=== PATIENT | female | born 1995 | race American Indian/Alaskan Native ===

== ENCOUNTER 2016-07-27 19:17 | Emergency (ER) | payer SELFPAY ==
[2016-07-27 20:02] VITALS: BP 121/66
== END 2016-07-27 19:50 | disposition left against medical advice (07) ==
LOC: DL.ED 19:17
DX: Z53.21 Procedure and treatment not carried out due to patient leaving prior to being seen by health care provider (principal)

== ENCOUNTER 2017-06-22 18:03 | Emergency (ER) | payer SELFPAY | END 2017-06-22 19:33 | disposition home or self-care (01) | LOC: DL.ED 18:03 | DX: J06.9 Acute upper respiratory infection, unspecified (principal) | CPT/HCPCS: 87081; 87430; 99283 ==

== ENCOUNTER 2017-10-09 17:57 | Emergency (ER) | payer SELFPAY ==
[2017-10-09 18:17] VITALS: BP 126/55
[2017-10-09] MEDS ORDERED: Penicillin G Benzathine/Procaine 600-600 1.2 Millunits/2 ML Syringe IM ONE (19:02)
[2017-10-09] MEDS ORDERED: Ketorolac 30 MG/ML SDV IM ONE (19:02)
--- NOTE | 2017-10-09 19:05 | EDM.PDOC ---
ED HPI GENERAL MEDICAL PROBLEM - General Chief Complaint: ENT Problem Stated Complaint: cold [id number] Time Seen by Provider: 10/09/17 19:03 Source of Information: Reports: Patient History Limitations: Reports: No Limitations - History of Present Illness INITIAL COMMENTS - FREE TEXT/NARRATIVE: c/o sore throat hard to swallow. Throat Pain Score (Numeric/FACES): 6 - Related Data Allergies Allergy/AdvReac Type Severity Reaction Status Date / Time No Known Allergies Allergy Verified 07/27/16 20:02 Home Meds: Home Meds . [No Known Home Meds] 10/27/14 [History] Past Medical History - Past Health History Medical/Surgical History: Denies Medical/Surgical History HEENT History: Reports: None Cardiovascular History: Reports: None Respiratory History: Reports: None Gastrointestinal History: Reports: None Genitourinary History: Reports: None MACHINE TESTER History: Reports: None Musculoskeletal History: Reports: None Neurological History: Reports: None Psychiatric History: Reports: None Endocrine/Metabolic History: Reports: None Hematologic History: Reports: None Immunologic History: Reports: None Oncologic (Cancer) History: Reports: None Dermatologic History: Reports: None Social & Family History - Family History Family Medical History: Noncontributory - Tobacco Use Smoking Status *Q: Current Every Day Smoker Years of Tobacco use: 3 Packs/Tins Daily: 0.1 - Caffeine Use Caffeine Use: Reports: Soda, Tea Caffeine Use Comment: patient denies - Recreational Drug Use Recreational Drug Use: No ED ROS ENT - Review of Systems Review Of Systems: ROS reveals no pertinent complaints other than HPI. ED EXAM, ENT - Physical Exam Exam: See Below Exam Limited By: No Limitations General Appearance: Alert, WD/WN, Mild Distress, Other (discomfort) Ears: Hearing Grossly Normal Mouth/Throat: Pharyngeal Erythema, Tonsillar Erythema, Tonsillar Exudates, Tonsillar Swelling Head: Atraumatic Neck: Non-Tender, Full Range of Motion Respiratory/Chest: No Respiratory Distress Cardiovascular: Regular Rate, Rhythm GI/Abdominal: Soft, Non-Tender Neurological: Alert, Oriented, Normal Cognition, Normal Gait, No Motor/Sensory Deficits Psychiatric: Flat Affect Skin: Warm, Dry, Normal Color Lymphatic: No Adenopathy Course - Vital Signs Last Recorded V/S: Last Vital Signs Temp 37.1 C 10/09/17 18:16 Pulse 100 10/09/17 18:16 Resp 16 10/09/17 18:16 BP 126/55 L 10/09/17 18:16 Pulse Ox 100 10/09/17 18:16 - Orders/Labs/Meds Orders: Active Orders 24 hr Category Date Time Status DRUG SCREEN URINE BIORAD [URCHEM] Stat Lab 10/09/17 18:28 Ordered HCG QUALITATIVE,URINE [URCHEM] Stat Lab 10/09/17 18:27 Ordered STREP SCRN A RAPID W CULT CONF [RM] Stat Lab 10/09/17 18:15 Ordered UA W/MICROSCOPIC [URIN] Stat Lab 10/09/17 18:27 Ordered Ketorolac [Toradol] Med 10/09/17 19:02 Once 30 mg IM ONETIME ONE Pen G Toon/Pen G Procaine [Bicillin C-R 600/600] Med 10/09/17 19:02 Once 1.2 millunits IM ONETIME ONE Labs: Laboratory Tests 10/09/17 10/09/17 10/09/17 Range/Units 18:27 18:27 18:28 Urine Color Yellow (YELLOW) Urine Appearance Cloudy (CLEAR) Urine pH 6.5 (5.0-9.0) Ur Specific [place] 1.010 (1.005-1.030) Urine Protein Trace H (NEGATIVE) Urine Glucose (UA) Negative (NEGATIVE) Urine Ketones Negative (NEGATIVE) Urine Occult Blood Negative (NEGATIVE) Urine Nitrite Negative (NEGATIVE) Urine Bilirubin Negative (NEGATIVE) Urine Urobilinogen 2.0 H (0.2-1.0) mg/dL Ur Leukocyte Esterase Negative (NEGATIVE) Urine HCG, Qual Negative Urine Opiates Screen Negative (NEGATIVE) Ur Oxycodone Screen Negative (NEGATIVE) Urine Methadone Screen Negative (NEGATIVE) Ur Barbiturates Screen Negative (NEGATIVE) U Tricyclic Antidepress Negative (NEGATIVE) Ur Phencyclidine Scrn Negative (NEGATIVE) Ur Amphetamine Screen Positive H (NEGATIVE) U Methamphetamines Scrn Positive H (NEGATIVE) Urine MDMA Screen Negative (NEGATIVE) U Benzodiazepines Scrn Negative (NEGATIVE) Urine Cocaine Screen Negative (NEGATIVE) U Marijuana (THC) Screen Positive H (NEGATIVE) Departure - Departure Time of Disposition: 19:04 Disposition: Home, Self-Care 01 Condition: Good Clinical Impression: Strep tonsillitis - Discharge Information Instructions: Strep Throat, [id number] Additional Instructions: 1) avoid solid foods scratchy foods 2) have popsicle, jello, juice, smoothies 3) take tylenol or motrin as needed for fever 4) follow up at clinic rx given; lexa - My Orders Last 24 Hours: My Active Orders 10/09/17 19:02 Ketorolac [Toradol] 30 mg IM ONETIME ONE Pen G Tono/Pen G Procaine [Bicillin C-R 600/600] 1.2 millunits IM ONETIME ONE - Assessment/Plan Last 24 Hours: My Active Orders 10/09/17 19:02 Ketorolac [Toradol] 30 mg IM ONETIME ONE Pen G Tono/Pen G Procaine [Bicillin C-R 600/600] 1.2 millunits IM ONETIME ONE
== END 2017-10-09 19:38 | disposition home or self-care (01) ==
LOC: DL.ED 17:57
DX: J03.00 Acute streptococcal tonsillitis, unspecified (principal); F17.210 Nicotine dependence, cigarettes, uncomplicated
CPT/HCPCS: 80305; 81001; 81025; 87430; 96372; 99283; J0558; J1885

== ENCOUNTER 2018-07-06 19:21 | Emergency (ER) | payer MEDICAID ==
[2018-07-06 22:32] LABS: ANION GAP 13.1; CHLORIDE,CL 106 mmol/L (101-111); SODIUM,NA 135 mmol/L (135-145)
[2018-07-06 23:12] VITALS: BP 145/95
--- NOTE | 2018-07-06 23:16 | EDM.PDOC ---
"ED HPI GENERAL MEDICAL PROBLEM - General Chief Complaint: DE ICER Problem Stated Complaint: MIGHT BE HAVING A MISCARRIAGE? Time Seen by Provider: 07/06/18 21:30 Source of Information: Reports: Patient History Limitations: Reports: No Limitations - History of Present Illness INITIAL COMMENTS - FREE TEXT/NARRATIVE: ED with c/o onset low back pain and abdominal cramping greater LLQ, concern if having miscarriage. LMP end of april. SAB2 Denies any vaginal bleeding or spotting. no urinary complaints. No nausea or vomiting. Lower Back Pain Score (Numeric/FACES): 6 - Related Data Allergies Allergy/AdvReac Type Severity Reaction Status Date / Time No Known Allergies Allergy Verified 07/06/18 21:44 Home Meds: Home Meds . [No Known Home Meds] 10/27/14 [History] Past Medical History - Past Health History Medical/Surgical History: Denies Medical/Surgical History HEENT History: Reports: None Cardiovascular History: Reports: None Respiratory History: Reports: None Gastrointestinal History: Reports: None Genitourinary History: Reports: None DE ICER History: Reports: Spontaneous Musculoskeletal History: Reports: None Neurological History: Reports: None Psychiatric History: Reports: None Endocrine/Metabolic History: Reports: None Hematologic History: Reports: None Immunologic History: Reports: None Oncologic (Cancer) History: Reports: None Dermatologic History: Reports: None Social & Family History - Family History Family Medical History: Noncontributory - Tobacco Use Smoking Status *Q: Current Every Day Smoker Years of Tobacco use: 6 Packs/Tins Daily: 0.5 - Caffeine Use Caffeine Use: Reports: Coffee, Energy Drinks, Soda Caffeine Use Comment: patient denies - Recreational Drug Use Recreational Drug Use: No ED ROS GENERAL - Review of Systems Review Of Systems: ROS reveals no pertinent complaints other than HPI. ED EXAM - Physical Exam Exam: See Below Exam Limited By: No Limitations General Appearance: Alert, No Apparent Distress Eye Exam: Bilateral Eye: EOMI Ears: Normal External Exam Nose: Normal Inspection Throat/Mouth: Normal Inspection Head: Atraumatic, Normocephalic Neck: Normal Inspection, Full Range of Motion Respiratory/Chest: No Respiratory Distress, Lungs Clear, Normal Breath Sounds Cardiovascular: Normal Peripheral Pulses, Regular Rate, Rhythm GI/Abdominal Exam: Normal Bowel Sounds, Soft, Tender (LLQ). No: Distended, Guarding Back Exam: Normal Inspection Extremities: Normal Inspection Neurological: Alert, Oriented, Normal Cognition Skin Exam: Warm, Dry, Intact, Normal Color Course - Vital Signs Last Recorded V/S: Last Vital Signs Temp 100.3 F 07/06/18 23:11 Pulse 129 H 07/06/18 23:11 Resp 18 07/06/18 23:11 BP 145/95 H 07/06/18 23:11 Pulse Ox 100 07/06/18 23:11 - Orders/Labs/Meds Labs: Laboratory Tests 07/06/18 07/06/18 07/06/18 Range/Units 22:01 22:01 22:01 WBC (5.0-10.0) 10^3/uL RBC (4.2-5.4) 10^6/uL Hgb (12.0-16.0) g/dL Hct (37.0-47.0) % MCV (80-100) fL MCH (27.0-34.0) pg MCHC (33.0-35.0) g/dL Plt Count (150-450) 10^3/uL Neut % (Auto) (42.2-75.2) % Lymph % (Auto) (20.5-50.1) % [place] % (Auto) (2-8) % Eos % (Auto) (1.0-3.0) % Baso % (Auto) (0.0-1.0) % Sodium (135-145) mmol/L Potassium (3.6-5.0) mmol/L Chloride (101-111) mmol/L Carbon Dioxide (21.0-31.0) mmol/L Anion Gap BUN (7-18) mg/dL Creatinine (0.6-1.3) mg/dL Est Cr Clr Drug Dosing mL/min Estimated GFR (MDRD) BUN/Creatinine Ratio Glucose (74-105) mg/dL Calcium (8.4-10.2) mg/dl Total Bilirubin (0.2-1.0) mg/dL AST (10-42) IU/L ALT (10-60) IU/L Alkaline Phosphatase (42-121) IU/L Total Protein (6.7-8.2) g/dl Albumin (3.2-5.5) g/dl Globulin Albumin/Globulin Ratio HCG, Quant (0-25) mIU/ml Beta HCG, Quant mIU/ml Urine Color Yellow (YELLOW) Urine Appearance Slightly cloudy (CLEAR) Urine pH 6.0 (5.0-9.0) Ur Specific [place] 1.020 (1.005-1.030) Urine Protein Negative (NEGATIVE) Urine Glucose (UA) Negative (NEGATIVE) Urine Ketones Negative (NEGATIVE) Urine Occult Blood Trace-intact H (NEGATIVE) Urine Nitrite Negative (NEGATIVE) Urine Bilirubin Negative (NEGATIVE) Urine Urobilinogen 0.2 (0.2-1.0) mg/dL Ur Leukocyte Esterase Negative (NEGATIVE) Urine RBC 0-5 /HPF Urine WBC 0-5 (0-5/HPF) /HPF Ur Epithelial Cells Many H (NOT SEEN) /HPF Amorphous Sediment Rare (NOT SEEN) /HPF Urine Bacteria Moderate H (0-FEW/HPF) /HPF Urine Mucus Rare (NOT SEEN) /LPF Urine HCG, Qual Positive Urine Opiates Screen Negative (NEGATIVE) Ur Oxycodone Screen Negative (NEGATIVE) Urine Methadone Screen Negative (NEGATIVE) Ur Barbiturates Screen Negative (NEGATIVE) U Tricyclic Antidepress Negative (NEGATIVE) Ur Phencyclidine Scrn Negative (NEGATIVE) Ur Amphetamine Screen Positive H (NEGATIVE) U Methamphetamines Scrn Positive H (NEGATIVE) Urine MDMA Screen Negative (NEGATIVE) U Benzodiazepines Scrn Negative (NEGATIVE) Urine Cocaine Screen Negative (NEGATIVE) U Marijuana (THC) Screen Negative (NEGATIVE) 07/06/18 07/06/18 07/06/18 Range/Units 22:04 22:04 22:04 WBC 11.9 H (5.0-10.0) 10^3/uL RBC 4.92 (4.2-5.4) 10^6/uL Hgb 14.3 (12.0-16.0) g/dL Hct 42.5 (37.0-47.0) % MCV 86.4 (80-100) fL MCH 29.1 (27.0-34.0) pg MCHC 33.6 (33.0-35.0) g/dL Plt Count 355 (150-450) 10^3/uL Neut % (Auto) 74.6 (42.2-75.2) % Lymph % (Auto) 19.9 L (20.5-50.1) % [place] % (Auto) 4.4 (2-8) % Eos % (Auto) 0.8 L (1.0-3.0) % Baso % (Auto) 0.3 (0.0-1.0) % Sodium 135 (135-145) mmol/L Potassium 4.1 (3.6-5.0) mmol/L Chloride 106 (101-111) mmol/L Carbon Dioxide 20.0 L (21.0-31.0) mmol/L Anion Gap 13.1 BUN 20 H (7-18) mg/dL Creatinine 0.7 (0.6-1.3) mg/dL Est Cr Clr Drug Dosing 99.70 mL/min Estimated GFR (MDRD) > 60 BUN/Creatinine Ratio 28.57 Glucose 111 H (74-105) mg/dL Calcium 9.3 (8.4-10.2) mg/dl Total Bilirubin 0.6 (0.2-1.0) mg/dL AST 17 (10-42) IU/L ALT 16 (10-60) IU/L Alkaline Phosphatase 73 (42-121) IU/L Total Protein 7.8 (6.7-8.2) g/dl Albumin 4.4 (3.2-5.5) g/dl Globulin 3.4 Albumin/Globulin Ratio 1.29 HCG, Quant 198 H (0-25) mIU/ml Beta HCG, Quant < 1050 mIU/ml Urine Color (YELLOW) Urine Appearance (CLEAR) Urine pH (5.0-9.0) Ur Specific [place] (1.005-1.030) Urine Protein (NEGATIVE) Urine Glucose (UA) (NEGATIVE) Urine Ketones (NEGATIVE) Urine Occult Blood (NEGATIVE) Urine Nitrite (NEGATIVE) Urine Bilirubin (NEGATIVE) Urine Urobilinogen (0.2-1.0) mg/dL Ur Leukocyte Esterase (NEGATIVE) Urine RBC /HPF Urine WBC (0-5/HPF) /HPF Ur Epithelial Cells (NOT SEEN) /HPF Amorphous Sediment (NOT SEEN) /HPF Urine Bacteria (0-FEW/HPF) /HPF Urine Mucus (NOT SEEN) /LPF Urine HCG, Qual Urine Opiates Screen (NEGATIVE) Ur Oxycodone Screen (NEGATIVE) Urine Methadone Screen (NEGATIVE) Ur Barbiturates Screen (NEGATIVE) U Tricyclic Antidepress (NEGATIVE) Ur Phencyclidine Scrn (NEGATIVE) Ur Amphetamine Screen (NEGATIVE) U Methamphetamines Scrn (NEGATIVE) Urine MDMA Screen (NEGATIVE) U Benzodiazepines Scrn (NEGATIVE) Urine Cocaine Screen (NEGATIVE) U Marijuana (THC) Screen (NEGATIVE) - Radiology Interpretation Free Text/Narrative:: [facility] [place] [facility] Final Radiology Report Call: [phone] assistance Online chat: [email or web address] Name: PEYTON CAPUTO Age: 22Years F Date: 07/06/2018 SSN: -- : [id number] Study: US LTD ONE OR MORE FETUSES Requesting Physician: EMILEE TRACEY Images: 37 Addl Studies: Provided Clinical History: Contrast: Without Contrast Medium: Contrast Amount: Contrast Method: Page 1 of 2 EXAM: US First Trimester, Transabdominal EXAM DATE/TIME: 07/06/2018 10:55 PM CLINICAL HISTORY: 22 years old, female; Signs and symptoms; LMP: 05/13/2018, corresponding to gestational age of 7 weeks 5 days. Left-sided pelvic pain. . Serum beta hC TECHNIQUE: Imaging protocol: Real-time transabdominal obstetrical ultrasound of the maternal pelvis and a first trimester , less than 14 weeks 0 days, with image documentation. COMPARISON: No relevant prior studies available. FINDINGS: GESTATION: Gestation: No intrauterine gestation appreciated. MATERNAL: Uterus: Endometrium is homogeneous in appearance and measures 11 mm. Unremarkable size and appearance of the uterus. Cervix: Unremarkable. Right adnexa: Unremarkable size and appearance of the right ovary. Left adnexa: Unremarkable size and appearance of the left ovary. Intraperitoneal: No intraperitoneal free fluid. IMPRESSION: PEYTON CAPUTO | Final Radiology Report CONFIDENTIALITY STATEMENT This report is intended only for use by the referring physician, and only in accordance with law. If you received this in error, call [phone]. Page 2 of 2 Endometrium is homogeneous in appearance and measures 11 mm. No intrauterine gestation appreciated. Although no evidence of ectopic is seen on the provided images, this cannot be totally excluded. Recommend follow-up serial beta hCGs and a repeat ultrasound in 7-10 days. Thank yo - Re-Assessments/Exams Free Text/Narrative Re-Assessment/Exam: 05/22/19 04:26 Discussed ultra sound finding. Instructed to return if heavy bleeding, or sever Lower abdominal pain. Patient was instructed to follow up with PCP at least in 7 -10 days for repeat ultra sound and repeat HCG level. Discussed with patient, negative side effects of meth including higher risk of miscarriage and OB complications. Departure - Departure Time of Disposition: 23:11 Disposition: Home, Self-Care 01 Condition: Good Clinical Impression: Pelvic pain during , Pain in pelvis Qualifiers: Weeks of gestation: less than 8 weeks Qualified Code(s): Z3A.01 - Less than 8 weeks gestation of - Discharge Information *PRESCRIPTION DRUG MONITORING PROGRAM REVIEWED*: No *COPY OF PRESCRIPTION DRUG MONITORING REPORT IN PATIENT PRAFUL: No Instructions: Back Pain in Referrals: PCP,None [Primary Care Provider] - Forms: ED Department Discharge Additional Instructions: increase fluids rest light activity follow up with primary care, for ultrasound repeat in 7-10 days and repeat beta hCG urgent care if severe bleeding or severe pain."
== END 2018-07-07 00:13 | disposition home or self-care (01) ==
LOC: DL.ED 19:21
DX: O99.89 Other specified diseases and conditions complicating pregnancy, childbirth and the puerperium (principal); R10.2 Pelvic and perineal pain; O99.331 Smoking (tobacco) complicating pregnancy, first trimester; F17.210 Nicotine dependence, cigarettes, uncomplicated; Z3A.01 Less than 8 weeks gestation of pregnancy
CPT/HCPCS: 36415; 76815; 80053; 80305-QW; 81001; 81025; 84702; 85025; 99284-25

== ENCOUNTER 2018-10-11 13:46 | Emergency (ER) | payer MEDICAID ==
[2018-10-11 14:08] VITALS: BP 119/56
--- NOTE | 2018-10-11 14:15 | EDM.PDOC ---
ED HPI GENERAL MEDICAL PROBLEM - General Chief Complaint: STAND GRINDER Problem Stated Complaint: LOWERBACK AND STOMACH PROBLEM Time Seen by Provider: 10/11/18 14:15 Source of Information: Reports: Patient, RN, RN Notes Reviewed History Limitations: Reports: No Limitations - History of Present Illness INITIAL COMMENTS - FREE TEXT/NARRATIVE: Pt to ER with c/o vaginal bleeding. Patient states she is 17 weeks and last evening noted blood in the toilet and on the toilet paper after voiding. Patient states she has been having low back pain as well as lower abdominal/ pelvic pain. Patient admits to burning with urination and frequency/urgency. Patient states she has had bleeding with voiding x1 today. Onset: Sudden Onset Date: 10/10/18 Lower Back Pain Score (Numeric/FACES): 6 - Related Data Allergies Allergy/AdvReac Type Severity Reaction Status Date / Time No Known Allergies Allergy Verified 10/11/18 13:59 Home Meds: Home Meds . [No Known Home Meds] 10/27/14 [History] Past Medical History - Past Health History Medical/Surgical History: Denies Medical/Surgical History HEENT History: Reports: None Cardiovascular History: Reports: None Respiratory History: Reports: None Gastrointestinal History: Reports: None Genitourinary History: Reports: None STAND GRINDER History: Reports: Spontaneous Other STAND GRINDER History: 08/18/2018 States she is 10 weeks . OB provider is Joanne Hartley at [facility] Musculoskeletal History: Reports: None Neurological History: Reports: None Psychiatric History: Reports: None Endocrine/Metabolic History: Reports: None Hematologic History: Reports: None Immunologic History: Reports: None Oncologic (Cancer) History: Reports: None Dermatologic History: Reports: None - Infectious Disease History Infectious Disease History: Reports: None - Past Surgical History Head Surgeries/Procedures: Reports: None Social & Family History - Family History Family Medical History: Noncontributory - Tobacco Use Smoking Status *Q: Never Smoker Second Hand Smoke Exposure: No - Caffeine Use Caffeine Use: Reports: Soda, Tea Caffeine Use Comment: patient denies - Recreational Drug Use Recreational Drug Use: No ED ROS GENERAL - Review of Systems Review Of Systems: ROS reveals no pertinent complaints other than HPI. ED EXAM - Physical Exam Exam: See Below Exam Limited By: No Limitations General Appearance: Alert, WD/WN, No Apparent Distress Eye Exam: Bilateral Eye: EOMI, Normal Inspection Ears: Normal External Exam, Hearing Grossly Normal Nose: Normal Inspection Throat/Mouth: Normal Inspection, Normal Voice, No Airway Compromise Head: Atraumatic, Normocephalic Neck: Normal Inspection, Supple, Non-Tender, Full Range of Motion Respiratory/Chest: No Respiratory Distress, Lungs Clear, Normal Breath Sounds, No Accessory Muscle Use, Chest Non-Tender Cardiovascular: Normal Peripheral Pulses, Regular Rate, Rhythm, No Edema, No Gallop, No JVD, No Murmur, No Rub GI/Abdominal Exam: Normal Bowel Sounds, Soft, Non-Tender Rectal Exam: Deferred (Female) Exam: Other (deferred as FHT WNL ) Heart Tones: Present Heart Tones per Min: 155 Movement: Not Appreciated Back Exam: Normal Inspection, Full Range of Motion Extremities: Normal Inspection, Normal Range of Motion, Non-Tender, No Pedal Edema, Normal Capillary Refill Neurological: Alert, Oriented, CN II-XII Intact, Normal Cognition, Normal Gait, Normal Reflexes, No Motor/Sensory Deficits Psychiatric: Normal Affect, Normal Mood Skin Exam: Warm, Dry, Intact, Normal Color, No Rash Lymphatic: No Adenopathy Course - Vital Signs Last Recorded V/S: Last Vital Signs Temp 98.1 F 10/11/18 14:06 Pulse 84 10/11/18 14:06 Resp 16 10/11/18 14:06 BP 119/56 L 10/11/18 14:06 Pulse Ox 98 10/11/18 14:06 - Orders/Labs/Meds Labs: Laboratory Tests 10/11/18 Range/Units 14:06 Urine Color Yellow (YELLOW) Urine Appearance Cloudy (CLEAR) Urine pH 6.0 (5.0-9.0) Ur Specific [place] 1.010 (1.005-1.030) Urine Protein Negative (NEGATIVE) Urine Glucose (UA) Negative (NEGATIVE) Urine Ketones Negative (NEGATIVE) Urine Occult Blood Negative (NEGATIVE) Urine Nitrite Negative (NEGATIVE) Urine Bilirubin Negative (NEGATIVE) Urine Urobilinogen 0.2 (0.2-1.0) mg/dL Ur Leukocyte Esterase Negative (NEGATIVE) - Re-Assessments/Exams Free Text/Narrative Re-Assessment/Exam: 10/11/18 14:15 Heart Tones = 150's-160's Departure - Departure Time of Disposition: 14:46 Disposition: Home, Self-Care 01 Condition: Fair Clinical Impression: Vaginal bleeding, Second trimester - Discharge Information *PRESCRIPTION DRUG MONITORING PROGRAM REVIEWED*: No *COPY OF PRESCRIPTION DRUG MONITORING REPORT IN PATIENT PRAFUL: No Instructions: Vaginal Bleeding During , Second Trimester, [id number] , Second Trimester of , [id number] Forms: ED Department Discharge Additional Instructions: Rest Drink plenty of water Abstain from intercourse until bleeding has stopped Follow up with your primary care facility
== END 2018-10-11 14:53 | disposition home or self-care (01) ==
LOC: DL.ED 13:46
DX: O20.9 Hemorrhage in early pregnancy, unspecified (principal); O99.89 Other specified diseases and conditions complicating pregnancy, childbirth and the puerperium; M54.5 Low back pain; Z3A.17 17 weeks gestation of pregnancy
CPT/HCPCS: 81003; 99284

== ENCOUNTER 2019-03-15 07:45 | Inpatient (IN) | payer MEDICAID ==
[2019-03-15] MEDS ORDERED: Carboprost Tromethamine 250 MCG/1 ML Amp IM PRN (08:01)
[2019-03-15] MEDS ORDERED: Sodium Chloride 0.9% 10 ML Syringe FLUSH PRN ×2 (08:01→21:23)
[2019-03-15] MEDS ORDERED: Acetaminophen 325 MG Tab PO PRN (08:01)
[2019-03-15] MEDS ORDERED: Oxytocin/Normal Saline 30 UNIT/500 ML BAG IV SCH ×2 (08:01)
[2019-03-15] MEDS ORDERED: Methylergonovine 0.2 MG/1 ML Amp IM PRN (08:01)
[2019-03-15] MEDS ORDERED: Lactated Ringers 1,000 ML IV ONE (08:01)
[2019-03-15] MEDS ORDERED: Penicillin G Potassium 5 MILLUNITS in Sodium Chloride 0.9% 100 ML IV ONE (08:01)
[2019-03-15] MEDS ORDERED: Misoprostol 400 MCG (4 X 100 MCG TAB) RECTAL PRN (08:01)
[2019-03-15] MEDS ORDERED: Ondansetron 4 MG/2 ML SDV IVPUSH PRN (08:01)
[2019-03-15] MEDS ORDERED: fentaNYL 100 MCG/2 ML SDV IVPUSH PRN (08:01)
[2019-03-15] MEDS ORDERED: Tranexamic Acid 1,000 MG in Sodium Chloride 0.9% 100 ML IV PRN (08:01)
[2019-03-15] MEDS ORDERED: Lidocaine 1% 30 ML SDV INJECT PRN (08:01)
[2019-03-15] MEDS: Lactated Ringers 1,000 ML IV SCH ×4 (09:18→20:34)
[2019-03-15] MEDS ORDERED: Misoprostol 50 MCG (1/2 of 100 MCG) Tab VAG PRN (09:52)
[2019-03-15] MEDS ORDERED: Misoprostol 25 MCG (1/4 of 100 MCG) Tab VAG PRN (10:15)
[2019-03-15] MEDS: Penicillin G Potassium 3 MILLUNITS in Sodium Chloride 0.9% 100 ML IV SCH ×2 (13:35→17:23)
[2019-03-15] MEDS ORDERED: fentaNYL 100 MCG/2 ML SDV ONE (19:27)
[2019-03-15] MEDS ORDERED: EPINEPHrine 1 MG/1 ML Amp ONE (19:28)
[2019-03-15] MEDS ORDERED: ePHEDrine 50 MG/ML SDV ONE (19:50)
[2019-03-15] MEDS ORDERED: Oxytocin/Normal Saline 30 UNIT/500 ML BAG ONE (20:12)
--- NOTE | 2019-03-15 21:13 | PCM.PRNOTE ---
- Free Text/Narrative Note: Requested to provide analgesia to full term patient in severe pain. Upon entering the room, patient is sitting on edge of bed complaining of severe abdominal/pelvic pain and discomfort. Procedure was discussed with patient including adverse outcomes and expectations. Pt consented to analgesia, SAB/ IT. Pt placed into a proper sitting position. Landmarks for SAB/IT were identified and marked. Hands were washed and appropriate PPE was applied. Back was prepped with betadine x3. A sterile, transparent, fenestrated drape was applied. Excess betadine was removed. Using 3 mL of a 1% lidocaine solution , a skin wheel was placed at the L2/L3 interspace. A 24 ga (4 inch) Pencan spinal needle was inserted until positive for CSF. Negative for heme or paresthesias. Injected fentanyl 30 mcg, sufentanil 25 mcg, and 6.75 mg of a 0.75% bupivacaine solution with an epi wash. Pt was placed left lateral position for approximately 20 minutes. After 15 minutes, the patient developed hypotension, SBP as low as 98. There was an extended decel into the low 80s but consistently 90s to 100s for several minutes. After giving more fluid, and O2, I gave ephedrine 10mg IVP then repeated ephedrine 5mg 10 minutes later. After that, there was no more BP issues and mother delivered vaginally around 2100. Procedure Date & Time: 03/15/19
[2019-03-15] MEDS ORDERED: Measles, Mumps & Rubella Vaccine 0.5 ML SDV SUBCUT ONE (21:23)
[2019-03-15] MEDS ORDERED: Benzocaine/Menthol 20%-0.5% Spray 56 GM Canister TOP PRN (21:23)
[2019-03-15] MEDS ORDERED: Simethicone 80 MG Tab.Chew PO PRN (21:23)
--- NOTE | 2019-03-15 22:38 | PN ---
DATE: 03/15/2019 SUBJECTIVE: The patient was not tolerating her labor very well earlier in the day. She had artificial rupture of membranes performed at 1645 with return of light meconium-stained fluid, and she was 6 cm dilated and 75% effaced at that time, position -3, and copious amounts of amniotic fluid returned. After that, she was laboring nicely roberto every 1-1/2 to 2 minutes and contractions getting stronger and she was feeling more pelvic pressure. As we continued to check her, she was having very slow change, and eventually was 7 cm dilated and 100% effaced, but requesting something for pain and agreeable to having an intrathecal, so the [facility] was paged. At that time, heart tracing 140 beats per minute at baseline, moderate [id number] variability, accelerations still noted, contractions every 2 minutes. Last blood pressure prior to intrathecal was 134/73 and some variables noted. She had her IV fluid bolus. The patient sat up for the intrathecal, and when she was laid back down, heart tones in the 120s for baseline, and then at around 1945, heart rate decelerated and stayed down for a total of 13 minutes getting into about 65 at its lowest. Baby was responding to scalp stim. I reassessed her, she was 8 cm dilated and 100% effaced. [facility] was in the room. OR crew was called and to be on standby. The patient was prepped for delivery, and vacuum was pulled and ready and on the table. Dr. Adan was also paged in to be of assist for potential emergent section or for possible resuscitation if the baby's tracing continued to be poor, but we were able to still deliver vaginally. Since that time, the Pitocin actually had been turned off. The patient received a dose of ephedrine. Blood pressure was 125/67, pulse of 100. Baby's heart tones at 130 beats per minute at baseline but moderate [id number] variability. [place] showing contractions still every 2 minutes. Baby's heart rate is currently recovered well and baby is tolerating labor much better. We are anticipating that hopefully we will be able to proceed with course toward vaginal delivery, but will keep ancillary staff closely available in case the situation should change. I do have concerns that the baby is measuring macrosomic and in all reality, the head size smaller than the abdominal circumference. ASSESSMENT/DIAGNOSIS: Same as on admission history and physical. At this time add status post heart rate decelerations, now recovering and slow progress in second part of stage II. PLAN: The patient should be comfortable for the next few hours. We will let her labor down and see how labor progresses. As long as baby's heart tracings are reassuring, we can reinitiate Pitocin as well because I see now her contractions are starting to space out a little bit. The patient has been verbally consented for section, and pending her clinical course, more thorough consent and proceeding to the operating room may be in order. [facility] /[id number] ALINE
[2019-03-15] MEDS: Docusate Sodium 100 MG Cap PO PRN (23:29)
[2019-03-15] MEDS: Ibuprofen 800 MG Tab PO PRN (23:29)
[2019-03-16] MEDS: Penicillin G Potassium 3 MILLUNITS in Sodium Chloride 0.9% 100 ML IV SCH ×2 (00:35→00:38)
--- NOTE | 2019-03-16 02:05 | DEL ---
DATE: 03/15/2019 PREPROCEDURE DIAGNOSES: 1. 40 and 1/7 weeks intrauterine based on last menstrual period. 2. 2, para 1-0-0-1. 3. macrosomia, suspected with estimated weight on ultrasound 4277 g. 4. Polyhydramnios, ABDON of 24.5. 5. Group B Strep positive, received 3 doses of penicillin in labor. 6. Rubella nonimmune. 7. Blood type O positive. 8. Obesity class 1. 9. Use of marijuana, methamphetamine and tobacco during . UDS negative on admission. Last reported use 02/03/2019 for methamphetamine. 10.History of bacterial vaginosis and urinary tract infection, treated in the 3rd trimester. 11.Status post induction of labor with Cytotec and Pitocin with artificial rupture of membranes 5 hours prior to delivery. 12.Non-reassuring heart tracing. POSTPROCEDURE DIAGNOSES: 1. 40 and 1/7 weeks intrauterine based on last menstrual period. 2. 2, para 2-0-0-2. 3. macrosomia, suspected with estimated weight on ultrasound 4277 g. 4. Polyhydramnios, ABDON of 24.5. 5. Group B Strep positive, received 3 doses of penicillin in labor. 6. Rubella nonimmune. 7. Blood type O positive. 8. Obesity class 1. 9. Use of marijuana, methamphetamine and tobacco during . UDS negative on admission. Last reported use 02/03/2019 for methamphetamine. 10.History of bacterial vaginosis and urinary tract infection, treated in the 3rd trimester. 11.Status post induction of labor with Cytotec and Pitocin with artificial rupture of membranes 5 hours prior to delivery. 12.Non-reassuring heart tracing. 13.Status post vacuum-assisted vaginal delivery plus second-degree laceration repair. BRIEF HISTORY: A 23-year-old female diagnosed yesterday with suspected macrosomia and polyhydramnios and postdates as of today, was brought in for induction of labor due to these specific risk factors. Induction was started this morning with Cytotec and followed by Pitocin after she reached 6 cm dilated. She was making slow progress, so artificial rupture of membranes was performed. She continued to progress slowly, and when she got to 7 cm, an intrathecal was placed for her comfort, and after that she was able to get to complete, but during this time, she had 13 minutes of heart rate decelerations down as low as in mid 60s, which improved with allowing her some more time to rest and reposition. Once the patient was complete and started pushing, there was recurrence of the heart rate decelerations with some recovery in between. She was pushing well, and after the first several contractions, the baby was down at 3+, but she was unable to deliver with that particular contraction and heart rate decelerated still down into the 70s. We had previously discussed vacuum-assisted vaginal delivery including the risk factors of increased potential for vaginal lacerations and tears, scalp lacerations to the baby, intracranial hemorrhage for the baby, increased risk of shoulder dystocia and switch to operative delivery. Also, discussed that the risk at this time would be for imminent compromise if I did not get the baby out quickly. Mother verbally consented and anesthesia was adequate. Her intrathecal was working quite well. Baby was in OA position and baby was expected to be large for gestational age based on ultrasound; however, baby's had descended well and we were at 3+ station. Therefore, I really anticipate that baby would be appropriate size for vacuum extraction. Mother's pushing efforts were excellent. She had brought the baby from -2 to +3 station in just 8 minutes and only about 4 contractions. The kiwi vacuum was placed and held in the yellow zone for about 2 minutes before she had a contraction, and we did 1 pull through that contraction with the vacuum in the green zone resulting in successful vaginal delivery. Operating room crew was in-house as well as the nurse mailroom messenger and Dr. Adan as a 2nd, and we would be able to proceed to emergency section if necessary. DETAILS: With the patient in dorsal lithotomy position, she delivered a viable female infant with vacuum assistance in the OA position over intact perineum. When the baby was brought to the level of the chin, vacuum was removed and then the baby's head delivered. Tight nuchal cord was noted and baby was then delivered with mother in Erich' position. There was no shoulder dystocia and baby somersaulted in order to untangle the baby from around the neck and shoulders from the umbilical cord. Infant was dried, stimulated and placed upon mother's abdomen as we also did some bulb suctioning. Three-vessel umbilical cord was doubly clamped and cut. Cord blood sample was then obtained and the baby was also taken to the warmer for further evaluation given the previous poor heart tracing. Attention then turned again to the mother and placenta delivered by gentle cord traction and concomitant uterine massage. The placenta was intact. Labia, vagina, and cervix inspected. There was a second-degree laceration which was repaired with 3-0 Vicryl in the usual fashion. On the left sidewall, there was a superficial tear, however, it was not hemostatic, so a single [id number] suture was placed and hemostasis achieved. Mother tolerated the procedure well. No additional lidocaine was necessary because her intrathecal was still working. COMPLICATIONS: None. ESTIMATED BLOOD LOSS: 450 mL. DISPOSITION: Mother and baby to remain in the delivery room and she can initiate . [facility] /[id number] ALINE
[2019-03-16] MEDS: Ferrous Sulfate 325 MG Tab PO SCH ×2 (08:39→20:46)
[2019-03-16] MEDS: Prenatal Multivitamin with Calcium/Folic Acid/Iron Tab PO SCH (08:40)
[2019-03-16] MEDS: Docusate Sodium 100 MG Cap PO PRN ×2 (08:40→19:27)
[2019-03-16] MEDS: Ibuprofen 800 MG Tab PO PRN ×2 (08:43→19:27)
--- NOTE | 2019-03-16 15:34 | PN ---
DATE: 03/16/2019 SUBJECTIVE: Post vacuum-assisted vaginal delivery day #1 with second-degree laceration repair. The patient is doing well. She is tolerating regular diet, voiding without any difficulties. Has not yet had a bowel movement. No chest pain. No shortness of breath. No foul-smelling drainage or discharge. her baby and reports that is going well. Denies any other acute concerns or complications. PHYSICAL EXAMINATION: GENERAL: Pleasant, well-appearing 23-year-old female. VITAL SIGNS: Temperature is 98.3, pulse 94, blood pressure 136/66, respiratory rate of 16. This morning, vitals, temperature is 97.9, pulse 77, respiratory rate of 18, blood pressure 121/62, O2 saturations 98% on room air. Heart: Regular without murmur. Lungs: Clear to auscultation bilaterally. Abdomen: Soft and nontender. Positive bowel sounds. Fundus is firm and below the umbilicus. Extremities: Trace edema. No erythema or tenderness noted. LABORATORY DATA: Hemoglobin down to 9.6 from a previous 11.4, platelets down to 265. ASSESSMENT: 1. Status post vacuum-assisted vaginal delivery with second-degree laceration repair, day #1. 2. mother. 3. 2, para 2-0-0-2. 4. use of tobacco, marijuana, and methamphetamine. 5. Rubella nonimmune. 6. Mild obesity. 7. complicated by suspected macrosomia and polyhydramnios. PLAN: Anticipate normal post vaginal delivery cares and anticipate discharge home tomorrow as long as all continues to go well. The patient's questions have been answered. [facility] /[id number]
[2019-03-17] MEDS: Ibuprofen 800 MG Tab PO PRN (06:12)
[2019-03-17] MEDS: Docusate Sodium 100 MG Cap PO PRN (09:15)
[2019-03-17] MEDS: Prenatal Multivitamin with Calcium/Folic Acid/Iron Tab PO SCH (09:15)
[2019-03-17] MEDS: Ferrous Sulfate 325 MG Tab PO SCH (09:15)
[2019-03-17 09:50] VITALS: BP 100/45; PULSE 80
[2019-03-17] MEDS ORDERED: ePHEDrine 50 MG/ML SDV IV ONE (11:21)
[2019-03-17] MEDS ORDERED: fentaNYL 100 MCG/2 ML SDV ITHECAL ONE (11:21)
[2019-03-17] MEDS ORDERED: EPINEPHrine 1 MG/1 ML Amp ONE (11:21)
--- NOTE | 2019-04-01 14:59 | DISCH ---
ADMITTING DIAGNOSES: 1. 2, para 1-0-0-1, currently at 40-1/7 weeks' gestation. 2. Suspicion of macrosomia and estimated weight greater than 4200 g. 3. Polyhydramnios with an ABDON of 24.5. 4. Group B strep positive, rubella nonimmune, and blood type O positive. 5. Obesity. 6. Marijuana and methamphetamine use during the . Urine drug screen negative on admission. 7. Smoker. 8. History of bacterial vaginosis and urinary tract infection, treated in the third trimester. 9. Anemia of . DISCHARGE DIAGNOSES: 1. 2, para 1-0-0-1, currently at 40-1/7 weeks' gestation. 2. Suspicion of macrosomia and estimated weight greater than 4200 g. 3. Polyhydramnios with an ABDON of 24.5. 4. Group B strep positive, rubella nonimmune, and blood type O positive. 5. Obesity. 6. Marijuana and methamphetamine use during the . Urine drug screen negative on admission. 7. Smoker. 8. History of bacterial vaginosis and urinary tract infection, treated in the third trimester. 9. Anemia of blood loss. 10. depression score of 20. BRIEF HISTORY: This 23-year-old female was brought into the hospital for induction of labor due to postdates, polyhydramnios, and suspected macrosomia. Labor induced with Cytotec, Pitocin and artificial rupture of membranes. She did quite well, laboring for about 11 hours total and only needed to push for 5 minutes. She had an uncomplicated spontaneous vaginal delivery with intrathecal anesthesia and did not need any repairs. Baby did well. score of 8 and 9. weight was only 3650 g. See delivery note for details. HOSPITAL COURSE: Has been good. The patient is ambulating and tolerating regular diet. No chest pain or shortness of breath. Bleeding has been appropriate. She has had good maternal child interactions and is . She attributes her high depression score to the fact that she has to return to the crisis residential unit for ongoing substance abuse treatment rather than getting to go home with her baby. Otherwise, she feels that she is low risk for depression. PHYSICAL EXAMINATION: General: Discharge condition is good. Vital Signs: Temperature is 98.8, pulse 80, and blood pressure 100/45. Heart: Regular without murmur. Lungs: Clear to auscultation bilaterally. Abdomen: Soft and nontender. Positive bowel sounds. Fundus is firm and below the umbilicus. Extremities: No edema, erythema, or tenderness noted. LABORATORY DATA: Hemoglobin 11.4 on admission and 9.6 on discharge. Platelets 307 on admission and 265 on discharge. DISPOSITION: To return to the crisis residential unit. DISCHARGE MEDICATIONS: [id number] Tylenol and ibuprofen as needed for pain, vitamin continue 1 daily, iron 325 mg twice daily, and Colace 100 mg twice daily as needed for constipation. FOLLOWUP: I will see her back in the office in 6 to 8 weeks for her exam. Otherwise, I will be checking on her mental status when she brings the baby in for the 2-day well-child and the 2-week well-child checks, and in between should any problems arise. Her questions have been answered. She understands all of her instructions. [facility] /[id number]
== END 2019-03-17 16:22 | disposition home or self-care (01) | DRG 807 ==
LOC: EDSTATUS 07:45 → DL.OB 07:47 → OBSVTOIN 20:52
PROVIDERS: ADMIT Family Medicine; ATTEND Family Medicine
PROC: 10D07Z6 Extraction of Products of Conception, Vacuum, Via Natural or Artificial Opening (ICD-10-PCS; principal; 2019-03-15)
PROC: 0KQM0ZZ Repair Perineum Muscle, Open Approach (ICD-10-PCS; 2019-03-15)
PROC: 3E033VJ Introduction of Other Hormone into Peripheral Vein, Percutaneous Approach (ICD-10-PCS; 2019-03-15)
DX: O40.3XX0 Polyhydramnios, third trimester, not applicable or unspecified (principal); Z37.0 Single live birth; O70.1 Second degree perineal laceration during delivery; O99.214 Obesity complicating childbirth; E66.9 Obesity, unspecified; O36.63X0 Maternal care for excessive fetal growth, third trimester, not applicable or unspecified; O99.334 Smoking (tobacco) complicating childbirth; F17.200 Nicotine dependence, unspecified, uncomplicated; Z3A.40 40 weeks gestation of pregnancy; Z23 Encounter for immunization
CPT/HCPCS: 01967; 36415; 51701; 59025; 59409; 80305-QW; 85027; 90471; 90707; A9270-GY; J0171; J2405; J2540; J2590; J3010; J7050; J7120